=== PATIENT | male | born 1975 | race Caucasian/White ===

== ENCOUNTER 2020-02-15 08:52 | Emergency (ER) | payer OTHER ==
[~2020-02-15] VITALS: Ht 175.3 cm; Wt 92.1 kg
[2020-02-15 09:05] VITALS: BP 144/85
[2020-02-15] MEDS ORDERED: KEFLEX500 M1 PO (09:54)
== END 2020-02-15 10:16 | disposition home or self-care (01) ==
LOC: M.ERS 08:52
DX: S61.411A Laceration without foreign body of right hand, initial encounter (principal); W26.0XXA Contact with knife, initial encounter; Y93.89 Activity, other specified; Y92.89 Other specified places as the place of occurrence of the external cause; Y99.8 Other external cause status